=== PATIENT | male | born 2000 | race Caucasian/White ===

== ENCOUNTER 2019-05-03 20:09 | Emergency (ER) | payer OTHER ==
[~2019-05-03] VITALS: Ht 177.8 cm; Wt 88.5 kg
[2019-05-03] MEDS ORDERED: VIRTUSSIN AC L118 ML PO (21:12)
--- NOTE | 2019-05-04 16:53 | EKG ---
[facility] [address] [place] [address] Signed Sinus tachycardia Otherwise normal ECG No previous ECGs available Confirmed by ILEANA GARCIA MD ([id number] on 05/04/2019 4:53:12 PM Electronically Signed By: ILEANA GARCIA MD 05/04/19 1653 PATIENT NAME: STEVIE SMITH CHRISTI Electrocardiogram DATE OF : [birth year] PHYSICIAN: ILEANA GARCIA MD REPORT #: [id number] REPORT IS CONFIDENTIAL AND NOT TO BE RELEASED WITHOUT AUTHORIZATION
== END 2019-05-03 21:27 | disposition home or self-care (01) ==
LOC: ED 20:09
DX: M94.0 Chondrocostal junction syndrome [Tietze] (principal)
CPT/HCPCS: 71046; 93005; 93010; 94640; 99285-25